=== PATIENT | male | born 1990 | race Caucasian/White ===

== ENCOUNTER 2017-05-18 09:23 | Emergency (ER) | payer OTHER ==
[2017-05-18 09:27] VITALS: BMI 28.5
--- NOTE | 2017-05-18 10:13 | PDOC ---
History of Present Illness - General Chief Complaint: Rectal Bleed Stated Complaint: RT FOOT PAIN Time Seen by Provider: 05/18/17 09:36 - History of Present Illness Initial Comments: 05/18/17 10:07 CHIEF COMPLAINT: rectal bleeding HISTORY OF PRESENT ILLNESS: 27 yo M with no PMH presents to ED with rectal bleeding x 3 months, worsening this week, with new onset abdominal pain this week. Patient states the pain is to his left side. He denies any vomiting but states he has had diarrhea for a week, mixed with "bright blood", but also has had "black stool, like black tarry stool" once a week for 2 months. He states today he feels constipated. He states that he started having rectal bleeding approximately a month ago, "but only when I wiped, but now it's getting worse, like the entire toilet is bloody, and now I keep having this abdominal pain.) Patient reports he has had pain to his third toe on his right foot but "I was told by my doctor just to straighten it and take Advil for the pain." He has been taking "like 12, maybe sometimes more" Advil a day for almost 3 months. He denies any shortness of breath, chest pain, palpitations, dizziness, lightheadedness, weakness. No recent travel or sick contacts. PAST MEDICAL HISTORY: Denies past medical history FAMILY HISTORY: Denies SOCIAL HISTORY: Occasional alcohol use, approximately 10 drinks 2-3x a month. Denies tobacco, illicit drug use. SURGICAL HISTORY: Denies ALLERGIES: honey bee venom REVIEW OF SYSTEMS General/Constitutional: Denies fever or chills. Denies weakness, weight change. HEENT: Denies change in vision. Denies ear pain or discharge. Denies sore throat. Cardiovascular: Denies chest pain or shortness of breath. Respiratory: Denies cough, wheezing, or hemoptysis. Gastrointestinal: Intermittent rectal bleeding x 3 months, worse this week. Denies nausea, vomiting, diarrhea or constipation. Genitourinary: Denies dysuria, frequency, or change in urination. Musculoskeletal: Denies joint or muscle swelling or pain. Denies neck or back pain. Skin and breasts: Denies rash or easy bruising. PHYSICAL EXAM General Appearance: Well-appearing, appropriately dressed. No apparent distress. HEENT: EOMI, PERRLA, normal ENT inspection, normal voice, TMs normal, pharynx normal. No conjunctival pallor. No photophobia, scleral icterus. Neck: Supple. Trachea midline. No tenderness, rigidity, carotid bruit, stridor , lymphadenopathy, or thyromegaly. Respiratory/Chest: Lungs CTAB. No shortness of breath, chest tenderness, respiratory distress, accessory muscle use. No crackles, rales, rhonchi, stridor , wheezing, dullness Cardiovascular: RRR. S1, S2. No JVD, murmur, bradycardia, tachycardia. Vascular Pulses: Dorsalis-Pedis (R): 2+, Dorsalis-Pedis (L): 2+ Gastrointestinal/Abdominal: TTP to LLQ. Normal bowel sounds. Abdomen soft, non- distended. No organomegaly, pulsatile mass, guarding, hernia, hepatomegaly, splenomegaly. Musculoskeletal/Extremities: Normal inspection. FROM of all extremities, normal capillary refill. Pelvis Stable. No CVA tenderness. No tenderness to extremities, pedal edema, swelling, erythema or deformity. Integumentary: Appropriate color, dry, warm. No cyanosis, erythema, jaundice or rash Neurologic: snow maker II-XII intact. Fully oriented, alert. Appropriate mood/affect. Motor strength 5/5. No appreciable EOM palsy, facial droop or sensory deficit. 05/18/17 10:21 Past History - Past Medical History Allergies/Adverse Reactions: Allergies Allergy/AdvReac Type Severity Reaction Status Date / Time venom-honey bee Allergy Severe Difficulty Verified 05/18/17 09:27 [bee venom (honey bee)] Breathing Home Medications: Ambulatory Orders No Home Medications 0 dose .ROUTE UTDICT 03/24/14 Pantoprazole Sodium [Protonix] 40 mg PO BID #60 tablet. 05/18/17 Other medical history: NONE - Immunization History Immunization Up to Date: Yes - Psycho/Social/Smoking Cessation Hx Anxiety: No Suicidal Ideation: No Smoking Status: No Smoking History: Never smoked Have you smoked in the past 12 months: No Number of Cigarettes Smoked Daily: 0 Hx Alcohol Use: Yes (SOCIAL) Drug/Substance Use Hx: No Substance Use Type: None *Physical Exam - Vital Signs Last Vital Signs Temp Pulse Resp BP Pulse Ox 99.1 F 120 H 20 124/85 100 05/18/17 09:24 05/18/17 09:24 05/18/17 09:24 05/18/17 09:24 05/18/17 09:24 ED Treatment Course - LABORATORY CBC & Chemistry Diagram: 05/18/17 15:15 05/18/17 09:30 Medical Decision Making - Medical Decision Making 05/18/17 10:13 27 yo M with no PMH presents to ED with rectal bleeding x 3 months, worsening this week, with new onset abdominal pain this week On arrival VS remarkable for HR 120. On exam HR 100. -EKG -CBC, CMP, T&S, PT/INR -Guaiac 05/18/17 12:48 Laboratory Tests 05/18/17 05/18/17 09:30 09:30 WBC 16.3 H Hgb 11.1 L Hct 34.4 L BUN 21 H Creatinine 1.4 H Guaiac negative. Will repeat CBC. Discussed case with MD Tadeo, will order abdomen and pelvis CTA to eval location of bleed. Awaiting CTA results. *DC/Admit/Observation/Transfer Diagnosis at time of Disposition: Gastritis - Discharge Dispostion Disposition: HOME Condition at time of disposition: Stable - Prescriptions Prescriptions: Pantoprazole Sodium [Protonix] 40 mg PO BID #60 tablet.dr - Referrals Referrals: Em Alexander MD [Primary Care Provider] - - Patient Instructions Printed Discharge Instructions: DI for Gastritis, DI for Rectal Bleeding Additional Instructions: Juan- The scan did not show any active bleeding- the next test you need is an endoscopy. Call Dr. Celeste's office to make an appointment tomorrow morning. Return to us if worse or any problems. Start the protonix tonight. 40 mg twice a day. I hope this gets resolved quickly. Best- Dr. Elvin Tadeo
[2017-05-18] MEDS ORDERED: PANTOPRAZOLE SODIUM 40 MG in SODIUM CHLORIDE 100 ML IVPB ONE (10:15)
[2017-05-18 10:32] LABS: MCH 27.4 pg (25.7-33.7); MCHC 32.1 g/dl (32.0-35.9); MEAN CELL VOLUME 85.3 fl (80-96); MEAN PLT VOLUME 7.7 fl (7.5-11.1); NEUTROPHILS 76.1 % (42.8-82.8); PLATELET COUNT 536 K/MM3 (134-434); RDW 17.2 % (11.9-15.9); WHITE BLOOD COUNT 16.3 K/mm3 (4.0-10.0)
[2017-05-18] MEDS ORDERED: PANTOPRAZOLE SODIUM 100 ML IVPB ONE (10:36)
[2017-05-18 10:44] LABS: INR 1.05 (0.82-1.09); PROTHROMBIN TIME (PATIENT) 11.6 SEC (9.98-11.88)
[2017-05-18 11:00] LABS: ALBUMIN 3.2 g/dl (3.4-5.0); ANION GAP 8 (8-16); BILIRUBIN,TOTAL 0.3 mg/dL (0.2-1.0); CALCIUM 8.6 mg/dL (8.5-10.1); CO2 28 mmol/L (21-32); CREATININE 1.4 mg/dL (0.7-1.3); GLUCOSE,RANDOM 102 mg/dL (74-106); SGOT/AST 36 U/L (15-37); SGPT/ALT 46 U/L (12-78); TOT PROT 7.6 g/dl (6.4-8.2)
[2017-05-18 11:01] LABS: ALK PHOS 59 U/L (45-117)
--- NOTE | 2017-05-18 14:58 | PDOC ---
History of Present Illness <Carmen Reyesgerald - Last Filed: 05/18/17 16:53> <Elvin Tadeo - Last Filed: 05/20/17 06:12> - General Chief Complaint: Rectal Bleed Stated Complaint: RT FOOT PAIN Time Seen by Provider: 05/18/17 09:36 Past History <Carmen Reyesgerald - Last Filed: 05/18/17 16:53> - Past Medical History Other medical history: NONE - Immunization History Immunization Up to Date: Yes - Psycho/Social/Smoking Cessation Hx Anxiety: No Suicidal Ideation: No Smoking Status: No Smoking History: Never smoked Have you smoked in the past 12 months: No Number of Cigarettes Smoked Daily: 0 Hx Alcohol Use: Yes (SOCIAL) Drug/Substance Use Hx: No Substance Use Type: None <Elvin Tadeo - Last Filed: 05/20/17 06:12> - Past Medical History Allergies/Adverse Reactions: Allergies Allergy/AdvReac Type Severity Reaction Status Date / Time venom-honey bee Allergy Severe Difficulty Verified 05/18/17 09:27 [bee venom (honey bee)] Breathing Home Medications: Ambulatory Orders No Home Medications 0 dose .ROUTE UTDICT 03/24/14 Pantoprazole Sodium [Protonix] 40 mg PO BID #60 tablet. 05/18/17 *Physical Exam - Vital Signs Last Vital Signs Temp Pulse Resp BP Pulse Ox 99.1 F 120 H 20 124/85 100 05/18/17 09:24 05/18/17 09:24 05/18/17 09:24 05/18/17 09:24 05/18/17 09:30 <ReyesCarmengerald - Last Filed: 05/18/17 16:53> - Vital Signs Last Vital Signs Temp Pulse Resp BP Pulse Ox 99.1 F 120 H 20 124/85 100 05/18/17 09:24 05/18/17 09:24 05/18/17 09:24 05/18/17 09:24 05/18/17 09:30 <Elvin Tadeo - Last Filed: 05/20/17 06:12> ED Treatment Course - LABORATORY CBC & Chemistry Diagram: 05/18/17 15:15 05/18/17 09:30 - ADDITIONAL ORDERS Additional order review: Laboratory Results 05/18/17 05/18/17 05/18/17 10:11 09:30 09:30 INR Sodium Potassium Chloride Carbon Dioxide Anion Gap BUN Creatinine Creat Clearance w eGFR Random Glucose Calcium Total Bilirubin AST ALT Alkaline Phosphatase Total Protein Albumin Stool Occult Blood Negative Blood Type O POSITIVE O POSITIVE Antibody Screen Positive H Antibody Identification TNP 05/18/17 05/18/17 09:30 09:30 INR 1.05 Sodium 135 L Potassium 4.5 Chloride 99 Carbon Dioxide 28 Anion Gap 8 BUN 21 H Creatinine 1.4 H Creat Clearance w eGFR > 60 Random Glucose 102 Calcium 8.6 Total Bilirubin 0.3 AST 36 ALT 46 Alkaline Phosphatase 59 Total Protein 7.6 Albumin 3.2 L Stool Occult Blood Blood Type Antibody Screen Antibody Identification 05/18/17 05/18/17 15:15 09:30 RBC 4.01 4.03 MCV 84.6 85.3 MCHC 31.2 L 32.1 RDW 16.6 H 17.2 H MPV 7.1 L 7.7 Neutrophils % 76.1 Lymphocytes % 5.9 L Monocytes % 15.0 H Eosinophils % 2.0 Basophils % 1.0 - RADIOLOGY Radiograph Interpretation: 05/18/17 16:53 EXAM: CT Abdomen and Pelvis INTERPRETED BY: Dr. Shen REVIEWED BY: Dr. Tadeo IMPRESSION: No CT evidence of active upper or lower GI bleeding. Significant thickening, edema and hyperemia of the descending and rectosigmoid colon suggestive of colitis, infectious or inflammatory. Other underlying etiologies cannot be completely excluded. - Medications Given in the ED: ED Medications Discontinued Medications Generic Name Dose Route Start Last Admin Trade Name Freq PRN Reason Stop Dose Admin Pantoprazole Sodium 40 mg/ 100 mls @ 200 mls/hr 05/18/17 10:15 05/18/17 10:37 Sodium Chloride IVPB 05/18/17 10:44 200 mls/hr ONCE ONE Administration <Aury Reyes - Last Filed: 05/18/17 16:53> - LABORATORY CBC & Chemistry Diagram: 05/18/17 15:15 05/18/17 09:30 - ADDITIONAL ORDERS Additional order review: Laboratory Results 05/18/17 05/18/17 05/18/17 10:11 09:30 09:30 INR Sodium Potassium Chloride Carbon Dioxide Anion Gap BUN Creatinine Creat Clearance w eGFR Random Glucose Calcium Total Bilirubin AST ALT Alkaline Phosphatase Total Protein Albumin Stool Occult Blood Negative Blood Type O POSITIVE O POSITIVE Antibody Screen Positive H Antibody Identification TNP 05/18/17 05/18/17 09:30 09:30 INR 1.05 Sodium 135 L Potassium 4.5 Chloride 99 Carbon Dioxide 28 Anion Gap 8 BUN 21 H Creatinine 1.4 H Creat Clearance w eGFR > 60 Random Glucose 102 Calcium 8.6 Total Bilirubin 0.3 AST 36 ALT 46 Alkaline Phosphatase 59 Total Protein 7.6 Albumin 3.2 L Stool Occult Blood Blood Type Antibody Screen Antibody Identification 05/18/17 09:30 RBC 4.03 MCV 85.3 MCHC 32.1 RDW 17.2 H MPV 7.7 Neutrophils % 76.1 Lymphocytes % 5.9 L Monocytes % 15.0 H Eosinophils % 2.0 Basophils % 1.0 - Medications Given in the ED: ED Medications Discontinued Medications Generic Name Dose Route Start Last Admin Trade Name Freq PRN Reason Stop Dose Admin Pantoprazole Sodium 40 mg/ 100 mls @ 200 mls/hr 05/18/17 10:15 05/18/17 10:37 Sodium Chloride IVPB 05/18/17 10:44 200 mls/hr ONCE ONE Administration <Elvin Tadeo - Last Filed: 05/20/17 06:12> Medical Decision Making - Medical Decision Making 05/18/17 16:00 No active bleeding seen on the scan..... H/H good. Unable to speak with Dr. Celeste, [facility] GI. Will DC home on Protonix 05/18/17 16:34 <Elvin Tadeo - Last Filed: 05/20/17 06:12> *DC/Admit/Observation/Transfer - Attestations Scribe Attestion: 05/18/17 16:55 Documentation prepared by Aury Reyes, acting as medical biller/coder for Elvin Tadeo DO. <Aury Reeys - Last Filed: 05/18/17 16:53> - Attestations Physician Attestion: 05/18/17 14:58 I, Dr. Elvin Tadeo, attest that this document has been prepared under my direction and personally reviewed by me in its entirety. I further attest, that it accurately reflects all work, treatment, procedures and medical decision -making performed by me. <Elvin Tadeo - Last Filed: 05/20/17 06:12> Diagnosis at time of Disposition: Gastritis - Discharge Dispostion Disposition: HOME Condition at time of disposition: Stable - Prescriptions Prescriptions: Pantoprazole Sodium [Protonix] 40 mg PO BID #60 tablet.dr - Referrals Referrals: Em Alexander MD [Primary Care Provider] - - Patient Instructions Printed Discharge Instructions: DI for Rectal Bleeding, DI for Gastritis Additional Instructions: Juan- The scan did not show any active bleeding- the next test you need is an endoscopy. Call Dr. Celeste's office to make an appointment tomorrow morning. Return to us if worse or any problems. Start the protonix tonight. 40 mg twice a day. I hope this gets resolved quickly. Best- Dr. Elvin Tadeo
--- NOTE | 2017-05-18 15:14 | EKG ---
Test Reason : Blood Pressure : / mmHG Vent. Rate : 100 BPM Atrial Rate : 100 BPM P-R Int : 130 ms QRS Dur : 092 ms QT Int : 300 ms P-R-T Axes : 054 089 -04 degrees QTc Int : 387 ms NORMAL SINUS RHYTHM CANNOT RULE OUT INFERIOR INFARCT , AGE UNDETERMINED ABNORMAL ECG NO PREVIOUS ECGS AVAILABLE Confirmed by NYA DOW MD ([id number]) on 05/18/2017 3:14:34 PM Referred By: Confirmed By:NYA DOW MD
[2017-05-18 15:23] LABS: MCH 26.4 pg (25.7-33.7); MCHC 31.2 g/dl (32.0-35.9); MEAN CELL VOLUME 84.6 fl (80-96); MEAN PLT VOLUME 7.1 fl (7.5-11.1); PLATELET COUNT 506 K/MM3 (134-434); RDW 16.6 % (11.9-15.9); WHITE BLOOD COUNT 16.2 K/mm3 (4.0-10.0)
[2017-05-18 17:08] VITALS: BP 156/86; PULSE 92; TEMP 97.9
== END 2017-05-18 17:11 | disposition home or self-care (01) ==
LOC: JER 09:23
PROC: 3E033GC Introduction of Other Therapeutic Substance into Peripheral Vein, Percutaneous Approach (ICD-10-PCS; principal; 2017-05-18)
DX: K29.70 Gastritis, unspecified, without bleeding (principal); Z91.038 Other insect allergy status
CPT/HCPCS: 36415; 74174-TC; 80053; 82272; 85025; 85027; 85610; 86850; 86870; 86900; 86901; 86902; 93005; 93010; 96365; 99284-25

== ENCOUNTER 2017-06-22 14:48 | Emergency (ER) | payer OTHER ==
[2017-06-22 15:09] VITALS: BP 136/70; PULSE 94; TEMP 98; BMI 29.8
--- NOTE | 2017-06-22 15:43 | PDOC ---
History of Present Illness - General Chief Complaint: Pain Stated Complaint: FOOT PAIN Time Seen by Provider: 06/22/17 15:26 History Source: Patient Exam Limitations: No Limitations - History of Present Illness Initial Comments: 06/22/17 15:57 CHIEF COMPLAINT: Pain to right fourth toe HISTORY OF PRESENT ILLNESS: 27 y/o male, with history of colitis unable to take NSAIDs presents for evaluation and guidance for pain to right fourth toe for one year. Patient has been seen by multiple doctors. MRI was recently performed which was suggestive of osteomyelitis. Was no erythema edema, no streaking to area. Patient was unable to obtain an orthopedic evaluation until 2 weeks. Denies fever, able to ambulate without difficulty, denies injury, no trauma. 06/22/17 16:09 Occurred: reports: other (1 year) Severity: Yes: moderate Lower Extremity Pain Location: right: 4th toe (swelling, no erthema, soft protruding area to the medial toe. ) Method of Injury: Yes: unknown Modifying Factors: improves with: None Lower Ext. Injury Location - Specific Injury Location Foot: right foot pain (right fourth toe) Past History - Past Medical History Allergies/Adverse Reactions: Allergies Allergy/AdvReac Type Severity Reaction Status Date / Time venom-honey bee Allergy Severe Difficulty Verified 06/22/17 15:06 [bee venom (honey bee)] Breathing Home Medications: Ambulatory Orders Pantoprazole Sodium [Protonix] 40 mg PO BID #60 tablet. 05/18/17 Oxycodone HCl/Acetaminophen [Percocet 5-325 mg Tablet] 1 - 2 tab PO Q4H #12 tablet MDD 12 06/22/17 Prednisone [Deltasone -] 10 mg PO DAILY 06/22/17 GI Disorders: Yes (COLITIS) - Immunization History Immunization Up to Date: Yes - Psycho/Social/Smoking Cessation Hx Anxiety: No Suicidal Ideation: No Smoking Status: No Smoking History: Never smoked Have you smoked in the past 12 months: No Number of Cigarettes Smoked Daily: 0 Information on smoking cessation initiated: No Hx Alcohol Use: Yes (SOCIAL) Drug/Substance Use Hx: No Substance Use Type: None Review of Systems - Review of Systems Musculoskeletal: Yes: Joint Pain, Joint Swelling. No: Muscle Pain, Muscle Weakness, Joint Stiffness Integumentary: No: Bruising, Erythema Neurological: No: Symptoms reported, Paresthesia, Tingling, Tremors Hematologic/Lymphatic: No: Symptoms Reported All Other Systems: Reviewed and Negative *Physical Exam - Vital Signs Last Vital Signs Temp Pulse Resp BP Pulse Ox 98 F 94 H 18 136/70 98 06/22/17 15:03 06/22/17 15:03 06/22/17 15:03 06/22/17 15:03 06/22/17 15:03 - Physical Exam General Appearance: Yes: Appropriately Dressed. No: Apparent Distress Respiratory/Chest: positive: Lungs Clear, Normal Breath Sounds Cardiovascular: positive: Regular Rhythm, Regular Rate Integumentary: positive: Swelling. negative: Erythema, Ecchymosis, Bruising ( right forth toe.) Neurologic: positive: Alert, Normal Mood/Affect Medical Decision Making - Medical Decision Making 06/22/17 15:50 A/P: Patient here for evaluation of chronic pain to right fourth toe. Patient reports being seen by multiple physicians MRI was performed which showed marked edema of the fourth toe with edema of the bone marrow of the distal and middle phalanx probably related cellulitis and osteomyelitis. There is no soft tissue abscess, patient was referred to orthopedics who did not have an appointment until next week. Appointment obtained from Dr. Grijalva at 3 PM tomorrow. Patient to bring copy of MRI, and follow-up pain medication ordered. I have decided not to start patient on antibiotics at this time because there is no erythema edema or streaking, symptoms have been occurring for one year. Only pain to toe. Patient will be seen at 3 PM tomorrow. *DC/Admit/Observation/Transfer Diagnosis at time of Disposition: Toe pain Qualifiers: Laterality: right Qualified Code(s): M79.674 - Pain in right toe(s) - Discharge Dispostion Disposition: HOME Condition at time of disposition: Good Admit: No - Prescriptions Prescriptions: Oxycodone HCl/Acetaminophen [Percocet 5-325 mg Tablet] 1 - 2 tab PO Q4H #12 tablet MDD 12 - Referrals Referrals: Hi Grijalva MD [Staff Physician] - - Patient Instructions Additional Instructions: Please follow up in the office of Dr. Grijalva tomorrow at 3 pm, 5 th floor of hospital.
== END 2017-06-22 15:53 | disposition home or self-care (01) ==
LOC: JERFT 14:48
DX: M79.674 Pain in right toe(s) (principal)
CPT/HCPCS: 99281-25

== ENCOUNTER 2017-06-30 21:54 | Emergency (ER) | payer OTHER ==
[2017-06-30 22:07] VITALS: BP 163/93; PULSE 95; TEMP 98.4; BMI 29.1
--- NOTE | 2017-06-30 22:45 | PDOC ---
History of Present Illness <Deshawn Wayne - Last Filed: 06/30/17 22:59> - General History Source: Patient Exam Limitations: No Limitations - History of Present Illness Initial Comments: 06/30/17 23:20 The patient is a 27 year old male, with significant past medical history of osteomyelitis of the right 4th toe, and ulcerative colitis, who presents today with right 4th toe swelling and pain that is exacerbated when walking and preventing him from sleeping at night. The patient is ambulatory but limping. He reports that he visited the ED on 06/22/17 and was given oxycodone for the pain , but has since run out. He notes that Tylenol provides no relief and he unable to take advil or motrin because of the colitis. The patient has experienced this pain intermittently over the past year; however , the pain worsened this summer. His PCP, Dr. Em Alexander, ordered a MRI in May which showed osteomyelitis. After two other ED visits, he finally got an appointment with computer instructor Dr. Grijalva on 06/23/17, who then referred him to Infectious Disease, Dr. Pal. He has an appointment to follow up with Dr. Pal in the office 1 week from today to receive his blood test results and discuss a treatment plan. Denies numbness, tingling of the lower extremity. Denies any recent trauma and injury to the right foot and toe. Denies fever, chills, nausea, vomiting. Allergies: NKDA Social Hx: No tobacco use. No alcohol use. No recreational drug use. PCP: Dr. Em Alexander Podiatry: Dr. Grijalva Infectious Disease: Dr. Wesley Pal Dipper Operator: Dr. Celeste <Taylor Almonte - Last Filed: 06/30/17 23:22> - General Chief Complaint: Pain Stated Complaint: PAIN (FOOT) Time Seen by Provider: 06/30/17 22:30 Past History - Past Medical History GI Disorders: Yes (COLITIS) - Immunization History Immunization Up to Date: Yes - Psycho/Social/Smoking Cessation Hx Anxiety: No Suicidal Ideation: No Smoking Status: No Smoking History: Never smoked Have you smoked in the past 12 months: No Number of Cigarettes Smoked Daily: 0 Information on smoking cessation initiated: No Hx Alcohol Use: No Drug/Substance Use Hx: No Substance Use Type: None <Deshawn Wayne - Last Filed: 06/30/17 22:59> <Taylor Almonte - Last Filed: 06/30/17 23:22> - Past Medical History Allergies/Adverse Reactions: Allergies Allergy/AdvReac Type Severity Reaction Status Date / Time venom-honey bee Allergy Severe Difficulty Verified 06/30/17 22:07 [bee venom (honey bee)] Breathing Home Medications: Ambulatory Orders Pantoprazole Sodium [Protonix] 40 mg PO BID #60 tablet. 05/18/17 Prednisone [Deltasone -] 10 mg PO DAILY 06/22/17 Tramadol HCl [Ultram] 50 mg PO QID PRN #20 tablet MDD 4 06/30/17 Review of Systems - Review of Systems Constitutional: No: Chills, Fever Respiratory: No: Shortness of Breath Cardiac (ROS): No: Palpitations Musculoskeletal: Yes: Joint Pain, Muscle Pain Integumentary: No: Rash Neurological: No: Weakness All Other Systems: Reviewed and Negative <Deshawn Wayne - Last Filed: 06/30/17 22:59> - Review of Systems Able to Perform ROS?: Yes <Taylor Almonte - Last Filed: 06/30/17 23:22> *Physical Exam - Vital Signs Last Vital Signs Temp Pulse Resp BP Pulse Ox 98.4 F 95 H 21 163/93 100 06/30/17 22:05 06/30/17 22:05 06/30/17 22:05 06/30/17 22:05 06/30/17 22:05 <Deshawn Wayne - Last Filed: 06/30/17 22:59> - Vital Signs Last Vital Signs Temp Pulse Resp BP Pulse Ox 98.4 F 95 H 21 163/93 100 06/30/17 22:05 06/30/17 22:05 06/30/17 22:05 06/30/17 22:05 06/30/17 22:05 - Physical Exam Comments: 06/30/17 23:21 GENERAL: The patient is awake, alert, and fully oriented, in no acute distress. HEAD: Normal with no signs of trauma. EYES: Pupils equal, round and reactive to light, extraocular movements intact, sclera anicteric, conjunctiva clear. RIGHT LOWER EXTREMITY: +soft tissue swelling to right 4th toe with some discomfort to palpation. No warmth. No erythema. No tenderness to the metatarsals. Neurovascularly intact. NEUROLOGICAL: Normal speech. PSYCH: Normal mood, normal affect. SKIN: Warm, Dry, normal turgor, no rashes or lesions noted. <Taylor Almonte - Last Filed: 06/30/17 23:22> ED Treatment Course - Medications Given in the ED: ED Medications Discontinued Medications Generic Name Dose Route Start Last Admin Trade Name Fadia PRN Reason Stop Dose Admin Tramadol HCl 50 mg 06/30/17 23:09 06/30/17 23:12 Ultram - PO 06/30/17 23:10 50 mg ONCE ONE Administration <NolaTaylor perdue - Last Filed: 06/30/17 23:22> Medical Decision Making - Medical Decision Making 06/30/17 23:00 A portion of this note was documented by scribe services under my direction. I have reviewed the details of the note, within reason, and agree with the documentation with the following case summary and management plan written by me. 27y/o healthy M with recently diagnosed UC on first course of steroids/abx as per Dr. Celeste, also with recent workup for acute (over past 2 months) on chronic (intermittent over 1.5 years) R 4th toe pain: MRI in May with positive osteomyelitis, seen here 06/22 with xray also c/w osteo, referred to Dr. Grijalva, then referred to Dr. Becker, and saw Dr. Pal of ID today. Has another appt with Dr. pal next week to determine antibiotics, but presents to ED again today asking solely for pain meds because he ran out of previously prescribed percocet. no f/c, no new sxs or complaints. strictly needs pain meds. no indication for further workup/imaging. Pt is under the care of all appropriate specialists and there is a plan to address initiation of abx. will give course of tramadol (bedside discussion about addiction, etc) will f/u with the specialists as scheduled understands return criteria. <Deshawn Wayne - Last Filed: 06/30/17 22:59> *DC/Admit/Observation/Transfer <Deshawn Wayne - Last Filed: 06/30/17 22:59> - Attestations Scribe Attestion: 06/30/17 23:21 Documentation prepared by KENDRA Mann, acting as medical care manager for Deshawn Wayne MD. <Taylor Almonte - Last Filed: 06/30/17 23:22> Diagnosis at time of Disposition: Toe pain Qualifiers: Laterality: right Qualified Code(s): M79.674 - Pain in right toe(s) - Prescriptions Prescriptions: Tramadol HCl [Ultram] 50 mg PO QID PRN #20 tablet MDD 4 PRN Reason: Pain - Referrals Referrals: Em Alexander MD [Primary Care Provider] - Wesley Pal MD [Staff Physician] - Yo Becker MD [Staff Physician] - - Patient Instructions Printed Discharge Instructions: DI for Osteomyelitis Additional Instructions: Activity as tolerated. Stay hydrated. Tylenol 1000 mg every 8 hours as needed for mild pain, tramadol as prescribed as needed for severe pain. Tramadol can make you lightheaded so take proper precautions. Continue your medications as previously prescribed by your physician. You should follow up with your specialists (Dr. Pal, Dr. Becker, and Dr. Alexander) as soon as possible regarding today's emergency department visit. Return to the emergency department for any new or concerning symptoms, particularly fever/chills, redness, increased swelling, intolerable pain.
[2017-06-30] MEDS ORDERED: traMADol HCL 50 MG TABLET PO ONE (23:09)
[2017-06-30] MEDS ORDERED: traMADol HCL 50 MG TABLET ONE (23:11)
== END 2017-06-30 23:26 | disposition home or self-care (01) ==
LOC: JER 21:54 → SUPCPDRO 21:54 → JER 23:26
DX: M79.674 Pain in right toe(s) (principal); M86.9 Osteomyelitis, unspecified; K51.90 Ulcerative colitis, unspecified, without complications
CPT/HCPCS: 99282-25

== ENCOUNTER 2017-07-27 03:33 | Emergency (ER) | payer OTHER ==
--- NOTE | 2017-07-27 03:49 | PDOC ---
History of Present Illness - General History Source: Patient <Tian Siu - Last Filed: 07/27/17 03:53> - General History Source: Patient Exam Limitations: No Limitations - History of Present Illness Initial Comments: 07/27/17 03:56 27 yr old male, with significant past medical history of ulcerative colitis and chronic pain to the right 4th toe, who presents to the emergency room complaining of right 4th toe pain. The patient explains that he has been worked up by multiple doctors for this pain and it is suspected to be osteomyelitis. He states that the tramadol is not relieving the pain, and he cannot take motrin secondary to the ulcerative colitis. The pain is very bothersome and preventing him from sleeping at night. No recent trauma, injury. No fever, chills, nausea, vomiting. Allergies: venom-honey bee PCP: Dr. Em Alexander <Taylor Almonte - Last Filed: 07/27/17 03:57> - General Stated Complaint: INFECTION IN FOOT Time Seen by Provider: 07/27/17 03:46 Past History - Past Medical History GI Disorders: Yes (COLITIS) - Immunization History Immunization Up to Date: Yes - Suicide/Smoking/Psychosocial Hx Smoking Status: No Smoking History: Never smoked Have you smoked in the past 12 months: No Number of Cigarettes Smoked Daily: 0 Hx Alcohol Use: No Drug/Substance Use Hx: No Substance Use Type: None <Tian Siu - Last Filed: 07/27/17 03:53> <Taylor Almonte - Last Filed: 07/27/17 03:57> - Past Medical History Allergies/Adverse Reactions: Allergies Allergy/AdvReac Type Severity Reaction Status Date / Time venom-honey bee Allergy Severe Difficulty Verified 07/27/17 03:49 [bee venom (honey bee)] Breathing Home Medications: Ambulatory Orders Pantoprazole Sodium [Protonix] 40 mg PO BID #60 tablet. 05/18/17 Prednisone [Deltasone -] 10 mg PO DAILY 06/22/17 Tramadol HCl [Ultram] 50 mg PO QID PRN #20 tablet MDD 4 06/30/17 Oxycodone HCl/Acetaminophen [Percocet 5-325 mg Tablet] 1 - 2 tab PO Q6H #20 tablet MDD 4 07/27/17 Review of Systems - Review of Systems Able to Perform ROS?: Yes Comments:: 07/27/17 03:57 CONSTITUTIONAL: Absent: fever, no chills, no fatigue EYES: Absent: visual changes ENT: Absent: ear pain, no sore throat CARDIOVASCULAR: Absent: chest pain, no palpitations RESPIRATORY: Absent: cough, no SOB GI: Absent: abdominal pain, no nausea, no vomiting, no constipation, no diarrhea GENITOURINARY: Absent: dysuria, no frequency, no hematuria MUSCULOSKELETAL: Present: right 4th toe pain Absent: back pain. SKIN: Absent: rash <Taylor Almonte - Last Filed: 07/27/17 03:57> *Physical Exam - Vital Signs Last Vital Signs Temp Pulse Resp BP Pulse Ox 98.7 F 75 14 124/73 100 07/27/17 03:49 07/27/17 03:49 07/27/17 03:49 07/27/17 03:49 07/27/17 03:49 - Physical Exam Comments: 07/27/17 03:57 GENERAL: Well-appearing, well-nourished. No apparent distress. HEENT: Normocephalic, atraumatic. PERRL, EOM intact. CARDIOVASCULAR: Normal S1, S2. Regular rate and rhythm. PULMONARY: Clear to auscultation bilaterally. ABDOMEN: Soft, non-distended, non-tender. EXTREMITIES: Tenderness to palpation to the distal phalanx of the 4th toe of the right foot. Non-erythematous. No streaking. No bony deformity. Normal ROM in all four extremities. No gross deformities. SKIN: Warm, dry. No rash NEUROLOGICAL: No focal neurological deficits. <Taylor Almonte - Last Filed: 07/27/17 03:57> Medical Decision Making - Medical Decision Making 07/27/17 03:52 Dr. Siu: The scribe's documentation has been prepared under my direction and personally reviewed by me in its entirery. I confirm that the note above accurately reflects all work, treatment, procedures, and medical decision making performed by me. <Tian Siu - Last Filed: 07/27/17 03:53> *DC/Admit/Observation/Transfer - Discharge Dispostion Admit: No <Tian Siu - Last Filed: 07/27/17 03:53> - Attestations Scribe Attestion: 07/27/17 03:57 Documentation prepared by KENDRA Mann, acting as medical intern for Tian Siu MD. <Taylor Almonte - Last Filed: 07/27/17 03:57> Diagnosis at time of Disposition: Toe pain - Discharge Dispostion Disposition: HOME Condition at time of disposition: Stable - Prescriptions Prescriptions: Oxycodone HCl/Acetaminophen [Percocet 5-325 mg Tablet] 1 - 2 tab PO Q6H #20 tablet MDD 4 - Referrals Referrals: Em Alexander MD [Primary Care Provider] - - Patient Instructions Printed Discharge Instructions: DI for Turf Toe Additional Instructions: Please follow up with your regular scheduled appointments. Avoid alcohol or driving when taking pain medication.
[2017-07-27 03:51] VITALS: BP 124/73; PULSE 75; TEMP 98.7; BMI 28.3
== END 2017-07-27 03:58 | disposition home or self-care (01) ==
LOC: JER 03:33
DX: M79.674 Pain in right toe(s) (principal); K52.9 Noninfective gastroenteritis and colitis, unspecified; G89.29 Other chronic pain
CPT/HCPCS: 99281-25

== ENCOUNTER 2017-11-17 11:05 | Observation (INO) | payer OTHER ==
--- NOTE | 2017-11-17 12:12 | PDOC ---
History of Present Illness - General History Source: Patient Exam Limitations: No Limitations - History of Present Illness Initial Comments: 11/17/17 12:16 The patient is a 27 year old male, with a significant past medical history of ulcerative colitis and anemia who presents to the emergency department with low H&H, SOB, headaches, light headedness for about 2 weeks. The patient also reports having complaints of palpitations. The patient reports having a previous episode with similar symptoms where he needed a blood transfusion. He notes his symptoms have been getting worse and he has been getting much more pale. He notes when transfering from a sitting position to a standing position his lightheadedness is often made worse. He denies bloody or dark/tarry stools. He denies any recent fevers, chills, illness. He denies any recent nausea, vomit , diarrhea or constipation. He denies any recent chest pain. He denies any recent dysuria, frequency, urgency or hematuria. Allergies: NKA Past surgical history: None reported. Social History: Nonsmoker. Occasional EtOH use and denies recreational drug use. Primary Care Physician: Dr.Sofia Alexander Family history: Denies cardiac history <Jesse Gomes - Last Filed: 11/17/17 14:33> <Sandra Carreno - Last Filed: 11/17/17 16:51> - General Chief Complaint: Lightheaded Stated Complaint: LOW H&H SOB, DIZZINESS Time Seen by Provider: 11/17/17 11:43 Past History <Jesse Gomes - Last Filed: 11/17/17 14:33> - Past Medical History Anemia: Yes COPD: No GI Disorders: Yes (COLITIS) - Immunization History Immunization Up to Date: Yes - Suicide/Smoking/Psychosocial Hx Smoking Status: No Smoking History: Never smoked Have you smoked in the past 12 months: No Number of Cigarettes Smoked Daily: 0 Information on smoking cessation initiated: No Hx Alcohol Use: No Drug/Substance Use Hx: No Substance Use Type: None <Sandra Carreno - Last Filed: 11/17/17 16:51> - Past Medical History Allergies/Adverse Reactions: Allergies Allergy/AdvReac Type Severity Reaction Status Date / Time venom-honey bee Allergy Severe Difficulty Verified 11/17/17 11:15 [bee venom (honey bee)] Breathing Home Medications: Ambulatory Orders Mesalamine Suppository [Canasa Suppository -] 10,000 mg [place] PRN PRN 11/17/17 Review of Systems - Review of Systems Able to Perform ROS?: Yes Comments:: 11/17/17 12:16 GENERAL/CONSTITUTIONAL: No fever or chills. No weakness. HEAD, EYES, EARS, NOSE AND THROAT: No change in vision. No ear pain or discharge. No sore throat. GASTROINTESTINAL: No nausea, vomiting, diarrhea or constipation. GENITOURINARY: No dysuria, frequency, or change in urination. CARDIOVASCULAR: (+) Shortness of breath. No chest pain. RESPIRATORY: No cough, wheezing, or hemoptysis. MUSCULOSKELETAL: No joint or muscle swelling or pain. No neck or back pain. SKIN: No rash NEUROLOGIC: (+) Lightheadedness. (+) Headache No loss of consciousness, or change in strength/sensation. ENDOCRINE: No increased thirst. No abnormal weight change. HEMATOLOGIC/LYMPHATIC: No anemia, easy bleeding, or history of blood clots. ALLERGIC/IMMUNOLOGIC: No hives or skin allergy. <Jesse Gomes - Last Filed: 11/17/17 14:33> *Physical Exam - Vital Signs Last Vital Signs Temp Pulse Resp BP Pulse Ox 98.3 F 77 18 137/83 100 11/17/17 11:17 11/17/17 11:17 11/17/17 11:17 11/17/17 11:17 11/17/17 11:17 - Physical Exam Comments: 11/17/17 12:16 GENERAL: (+) Pale in appearance. Awake, alert, and fully oriented, in no acute distress HEAD: No signs of trauma EYES: (+) Pale conjuctiva. PERRLA, EOMI, sclera anicteric. ENT: Auricles normal inspection, hearing grossly normal, nares patent, oropharynx clear without exudates. Moist mucosa NECK: Normal ROM, supple, no lymphadenopathy, JVD, or masses LUNGS: Breath sounds equal, clear to auscultation bilaterally. No wheezes, and no crackles HEART: Regular rate and rhythm, normal S1 and S2, no murmurs, rubs or gallops ABDOMEN: Soft, nontender, normoactive bowel sounds. No guarding, no rebound. No masses EXTREMITIES: Normal range of motion, no edema. No clubbing or cyanosis. No cords, erythema, or tenderness BACK: No midline spinal tenderness in cervical/thoracic/lumbar region NEUROLOGICAL: Normal speech, cranial nerves intact, negative pronator drift, 5/ 5 strength in all 4 extremities, normal sensation to light touch in all 4 extremities, normal cerebellar exam, normal gait, normal reflexes and tone SKIN: Warm, Dry, normal turgor, no rashes or lesions noted. <Jesse Gomse - Last Filed: 11/17/17 14:33> - Vital Signs Last Vital Signs Temp Pulse Resp BP Pulse Ox 98.3 F 77 18 137/83 100 11/17/17 11:17 11/17/17 11:17 11/17/17 11:17 11/17/17 11:17 11/17/17 11:17 <Sandra Carreno - Last Filed: 11/17/17 16:51> ED Treatment Course - LABORATORY CBC & Chemistry Diagram: 11/17/17 12:40 11/17/17 12:40 - Consult/PCP Time Called: 12:10 (Called Dr. Alexander at 12:10 & 13:00, who was not available to speak. ) Case discussed with personal care physician: Em Alexander <Jesse Gomes - Last Filed: 11/17/17 14:33> - LABORATORY CBC & Chemistry Diagram: 11/17/17 12:40 11/17/17 12:40 - RADIOLOGY Radiology Studies Ordered: Category Date Time Status CHEST PA & LAT [RAD] Stat Radiology 11/17/17 12:04 Ordered <Sandra Carreno - Last Filed: 11/17/17 16:51> Medical Decision Making - Medical Decision Making 11/17/17 14:33 Spoke with [employer] Asha Grimm who accepted admission. <Jesse Gomes - Last Filed: 11/17/17 14:33> - Medical Decision Making 11/17/17 12:06 27-year-old male history of iron deficiency anemia and ulcerative colitis presents with shortness of breath and lightheadedness and hemoglobin 2 days ago of 7.5. Vitals unremarkable. Exam remarkable for pale appearance, guaiac exam is pending. We'll repeat labs today and admit for symptomatic anemia. We'll call the patient's primary physician Dr. Alexander in the meantime. 11/17/17 14:45 Labs remarkable for hemoglobin of 7.7. One unit of packed red blood cells has been ordered. Stool guaiac is negative. Case discussed with nurse practitioner Asha, patient accepted for admission to Dr. Howell. Case discussed in detail with admitting physician including history, physical exam and ancillary studies. Admitting physician has assumed care for the patient, will follow all pending diagnostics and will complete the evaluation and treatment. <Sandra Carreno - Last Filed: 11/17/17 16:51> *DC/Admit/Observation/Transfer - Attestations Scribe Attestion: 11/17/17 12:16 Documentation prepared by Jesse Gomes, acting as hospitalist medical director for Sandra Carreno MD. <Jesse Gomes - Last Filed: 11/17/17 14:33> - Discharge Dispostion Admit: Yes - Attestations Physician Attestion: 11/17/17 14:46 I, Dr. Sandra Carreno MD, attest that this document has been prepared under my direction and personally reviewed by me in its entirety. I further attest, that it accurately reflects all work, treatment, procedures and medical decision -making performed by me. <Sandra Carreno - Last Filed: 11/17/17 16:51> Diagnosis at time of Disposition: Anemia requiring transfusions
[2017-11-17 13:25] LABS: INR 1.05 (0.82-1.09); PROTHROMBIN TIME (PATIENT) 11.9 SEC (9.98-11.88)
[2017-11-17 13:28] LABS: ACTIVATED PTT 31.9 SECONDS (26.9-34.4)
[2017-11-17 13:29] LABS: BASO % 3.6 % (0-2.0); EOS % 6.1 % (0-4.5); HEMATOCRIT 25.9 % (35.4-49); HEMOGLOBIN 7.7 GM/dL (11.7-16.9); LYMPH % 19.7 % (8-40); MCHC 29.6 g/dl (32.0-35.9); MEAN CELL VOLUME 80.9 fl (80-96); MEAN PLT VOLUME 7.4 fl (7.5-11.1); MONO % 9.8 % (3.8-10.2); NEUT % 60.8 % (42.8-82.8); PLATELET COUNT 384 K/MM3 (134-434); RBC 3.21 M/mm3 (4.00-5.60); RDW 18.2 % (11.9-15.9); WHITE BLOOD COUNT 4.4 K/mm3 (4.0-10.0)
[2017-11-17 13:37] LABS: ALBUMIN 4.1 g/dl (3.4-5.0); ANION GAP 6 (8-16); BILIRUBIN,TOTAL 0.3 mg/dL (0.2-1.0); BLOOD UREA NITROGEN 12 mg/dL (7-18); CALCIUM 8.4 mg/dL (8.5-10.1); CHLORIDE 107 mmol/L (98-107); CO2 26 mmol/L (21-32); GLUCOSE,RANDOM 81 mg/dL (74-106); SGOT/AST 19 U/L (15-37); SGPT/ALT 22 U/L (12-78); SODIUM 139 mmol/L (136-145); TOT PROT 7.5 g/dl (6.4-8.2)
[2017-11-17 13:38] LABS: ALK PHOS 41 U/L (45-117)
--- NOTE | 2017-11-17 15:05 | HP ---
Admitting History and Physical - Admission Chief Complaint: dizziness and light headness History Source: Patient - Past Medical History Heme/Onc: Yes: Anemia - Smoking History Smoking history: Never smoked Have you smoked in the past 12 months: No Aproximately how many cigarettes per day: 0 - Alcohol/Substance Use Hx Alcohol Use: No Home Medications - Allergies Allergies/Adverse Reactions: Allergies Allergy/AdvReac Type Severity Reaction Status Date / Time venom-honey bee Allergy Severe Difficulty Verified 11/17/17 11:15 [bee venom (honey bee)] Breathing - Home Medications Home Medications: Ambulatory Orders Mesalamine Suppository [Canasa Suppository -] 10,000 mg [place] PRN PRN 11/17/17 Review of Systems - Review of Systems Constitutional: reports: Other (lightheaded) Neurological: reports: Dizziness Physical Examination Vital Signs: Vital Signs Temperature 98.3 F 11/17/17 11:17 Pulse Rate 77 11/17/17 11:17 Respiratory Rate 18 11/17/17 11:17 Blood Pressure 137/83 11/17/17 11:17 O2 Sat by Pulse Oximetry (%) 100 11/17/17 11:17 Constitutional: Yes: Calm, Pallor Cardiovascular: Yes: Regular Rate and Rhythm, S1, S2 Respiratory: Yes: CTA Bilaterally Gastrointestinal: Yes: Normal Bowel Sounds, Soft Edema: No Neurological: Yes: Alert, Oriented Labs: CBC, BMP 11/17/17 12:40 11/17/17 12:40 Imaging - Results Chest X-ray: Report Reviewed Problem List - Problems (1) Anemia requiring transfusions Assessment/Plan: heme prbc gi iron panel early ambulation observation admisson stool occult negative ppi Code(s): D64.9 - ANEMIA, UNSPECIFIED
--- NOTE | 2017-11-17 16:24 | CONSULT ---
Consult Consult Specialty:: Hematology - History of Present Illness History of Present Illness: Patient seen and examined consulted for anemia, has Iron def as per him Last PRBC in June. Very few flares of UC. follows with GI . Denies bleeding now. - History Source History Provided By: Patient, Family Member - Past Medical History Gastrointestinal: Yes: Ulcerative Colitis - Alcohol/Substance Use Hx Alcohol Use: No - Smoking History Smoking history: Never smoked Have you smoked in the past 12 months: No Aproximately how many cigarettes per day: 0 Home Medications - Allergies Allergies/Adverse Reactions: Allergies Allergy/AdvReac Type Severity Reaction Status Date / Time venom-honey bee Allergy Severe Difficulty Verified 11/17/17 11:15 [bee venom (honey bee)] Breathing - Home Medications Home Medications: Ambulatory Orders Mesalamine Suppository [Canasa Suppository -] 10,000 mg [place] PRN PRN 11/17/17 Review of Systems - Review of Systems Constitutional: denies: Fever, Lethargy, Loss of Appetite Eyes: denies: Blurred Vision, Double Vision, Eye Pain, Photophobia HENT: denies: Difficult Swallowing Cardiovascular: denies: Chest Pain, Edema, Palpitations, Shortness of Breath Gastrointestinal: denies: Abdominal Pain, Bloating, Constipation, Diarrhea, Rectal Bleeding, Vomiting Musculoskeletal: reports: No Symptoms Neurological: reports: No Symptoms Hematology/Lymphatic: reports: No Symptoms Physical Exam Vital Signs: Vital Signs Temperature 98.3 F 11/17/17 11:17 Pulse Rate 77 11/17/17 11:17 Respiratory Rate 18 11/17/17 11:17 Blood Pressure 137/83 11/17/17 11:17 O2 Sat by Pulse Oximetry (%) 100 11/17/17 11:17 Constitutional: Yes: Well Nourished, No Distress, Calm Eyes: Yes: Conjunctiva Clear, Other HENT: Yes: Atraumatic, Normocephalic Neck: Yes: Supple, Trachea Midline Cardiovascular: Yes: Regular Rate and Rhythm Respiratory: Yes: Regular, CTA Bilaterally Gastrointestinal: Yes: Normal Bowel Sounds, Soft Extremities: Yes: WNL Edema: No Labs: CBC, BMP 11/17/17 12:40 11/17/17 12:40 Problem List - Problems (1) Anemia requiring transfusions Code(s): D64.9 - ANEMIA, UNSPECIFIED (2) Gastritis Code(s): K29.70 - GASTRITIS, UNSPECIFIED, WITHOUT BLEEDING (3) Ulcerative colitis Code(s): K51.90 - ULCERATIVE COLITIS, UNSPECIFIED, WITHOUT COMPLICATIONS Assessment/Plan Known case of Iron defeciency anemia from likely UC, follows with stopped Ferrous sulfate will try ferrex forte PRBC being transfused may benefit from parenteral iron for OP f/u
[2017-11-17 19:12] VITALS: BMI 26.9
--- NOTE | 2017-11-17 20:59 | CON.GI ---
Consult Consult Specialty:: GI Referred by:: Dr Hilliard - History of Present Illness History of Present Illness: 27 y/o male with Ulcerative colitis associated with anemia was being worked up to receive Humara because he was not responding clinically to 5 ASA and Immuran. He did not show for his follow since July 2017. He was admitted for symptomatic anemia, dizziness, near syncope and easy fatigability. - Past Medical History Gastrointestinal: Yes: Ulcerative Colitis - Alcohol/Substance Use Hx Alcohol Use: No - Smoking History Smoking history: Never smoked Have you smoked in the past 12 months: No Aproximately how many cigarettes per day: 0 Home Medications - Allergies Allergies/Adverse Reactions: Allergies Allergy/AdvReac Type Severity Reaction Status Date / Time venom-honey bee Allergy Severe Difficulty Verified 11/17/17 11:15 [bee venom (honey bee)] Breathing - Home Medications Home Medications: Ambulatory Orders Mesalamine Suppository [Canasa Suppository -] 10,000 mg [place] PRN PRN 11/17/17 Review of Systems - Review of Systems Constitutional: denies: Fever Eyes: denies: Blurred Vision HENT: denies: Difficult Swallowing Neck: denies: Decreased ROM Cardiovascular: denies: Chest Pain Respiratory: denies: Cough Gastrointestinal: reports: Diarrhea. denies: Abdominal Pain, Bloating, Dysphagia, Indigestion, Melena Physical Exam-GI Vital Signs: Vital Signs Temperature 98.5 F 11/17/17 18:00 Pulse Rate 86 11/17/17 18:00 Respiratory Rate 16 11/17/17 18:00 Blood Pressure 127/66 11/17/17 18:00 O2 Sat by Pulse Oximetry (%) 100 11/17/17 17:15 Constitutional: Yes: Well Nourished Eyes: Yes: Conjunctiva Clear HENT: Yes: Atraumatic Neck: Yes: Supple Cardiovascular: Yes: Regular Rate and Rhythm Respiratory: Yes: CTA Bilaterally ...Palpate: No: Firm/Rigid, Guarding, Hepatomegaly, Mass, Pulsatile Mass, Splenomegaly, Tenderness Labs: CBC, BMP 11/17/17 12:40 11/17/17 12:40 INR, PTT INR 1.05 (0.82-1.09) 11/17/17 12:40 Problem List - Problems (1) Ulcerative colitis Assessment/Plan: relapse R> made aaware to follow-up closely to avoid possiblle total colectomy Prednisone 60 mg daily for 2 weeks then will give tapering dose as an outpatient Flagyl 250mg tid x 2 weeks Code(s): K51.90 - ULCERATIVE COLITIS, UNSPECIFIED, WITHOUT COMPLICATIONS
[2017-11-17] MEDS: methylPREDNISolone NA SUCC 40 MG/1 ML VIAL IVPUSH SCH (22:00)
[2017-11-17] MEDS: METRONIDAZOLE PREMIXED IVPB 250 MG/50 ML MG IVPB SCH (22:00)
[2017-11-17] MEDS: CEFTRIAXONE 1 G/50 ML PREMIX 50 ML IVPB SCH (22:01)
[2017-11-18] MEDS: METRONIDAZOLE PREMIXED IVPB 250 MG/50 ML MG IVPB SCH ×2 (02:20→10:19)
[2017-11-18 07:42] VITALS: TEMP 98.4
[2017-11-18 08:29] LABS: HEMATOCRIT 33.2 % (35.4-49); HEMOGLOBIN 9.9 GM/dL (11.7-16.9); MCH 24.1 pg (25.7-33.7); MCHC 29.9 g/dl (32.0-35.9); MEAN CELL VOLUME 80.7 fl (80-96); MEAN PLT VOLUME 7.6 fl (7.5-11.1); PLATELET COUNT 403 K/MM3 (134-434); RBC 4.11 M/mm3 (4.00-5.60); RDW 17.9 % (11.9-15.9); WHITE BLOOD COUNT 6.1 K/mm3 (4.0-10.0)
[2017-11-18 09:00] VITALS: BP 132/76; PULSE 76
--- NOTE | 2017-11-18 09:45 | DS ---
Physical Examination Vital Signs: Vital Signs Temperature 98.4 F 11/18/17 06:00 Pulse Rate 76 11/18/17 09:00 Respiratory Rate 18 11/18/17 09:00 Blood Pressure 132/76 11/18/17 09:00 O2 Sat by Pulse Oximetry (%) 99 11/18/17 05:53 Constitutional: Yes: Calm Neck: Yes: Trachea Midline Cardiovascular: Yes: Regular Rate and Rhythm, S1, S2 Respiratory: Yes: CTA Bilaterally Gastrointestinal: Yes: Normal Bowel Sounds, Soft Edema: No Neurological: Yes: Alert, Oriented Labs: CBC, BMP 11/18/17 07:30 11/17/17 12:40 Discharge Summary Reason For Visit: TRANSFUSION DEPENDENT ANEMIA Current Active Problems Anemia requiring transfusions (Acute) Ulcerative colitis (Acute) Hospital Course: The patient is a 27 year old male, with a significant past medical history of ulcerative colitis and anemia who presents to the emergency department with low H&H, SOB, headaches, light headedness for about 2 weeks. The patient also reports having complaints of palpitations. The patient reports having a previous episode with similar symptoms where he needed a blood transfusion. He notes his symptoms have been getting worse and he has been getting much more pale. He notes when transfering from a sitting position to a standing position his lightheadedness is often made worse. He denies bloody or dark/tarry stools. He denies any recent fevers, chills, illness. He denies any recent nausea, vomit , diarrhea or constipation. He denies any recent chest pain. He denies any recent dysuria, frequency, urgency or hematuria. Allergies: NKA Past surgical history: None reported. Social History: Nonsmoker. Occasional EtOH use and denies recreational drug use. Primary Care Physician: Dr.Sofia Alexander Family history: Denies cardiac history hospital course: found to have h/h of 7.7 got prbc and now h/h 9.9 and symptoms improved seen by Dr santiago for UC and started on flagyl and steroids to continue flagyl 250mg tid for 3 weeks and prednisone 60mg daily fo r2 weeks then follow with Dr santiago for tapering dose Condition: Good - Instructions Diet, Activity, Other Instructions: prednsione 60mg po daily for 2 weeks and FU with Dr santiago for tapering dose flagyl 250mg po tid for 3 weeks Referrals: Em Alexander MD [Primary Care Provider] - Wesley Santiago MD [Staff Physician] - 2 Weeks Disposition: HOME - Home Medications Comprehensive Discharge Medication List: Ambulatory Orders Mesalamine Suppository [Canasa Suppository -] 10,000 mg [place] PRN PRN 11/17/17
[2017-11-18] MEDS ORDERED: PT OWN MED DRAWER 7, Y5N ONE (10:08)
[2017-11-18] MEDS: methylPREDNISolone NA SUCC 40 MG/1 ML VIAL IVPUSH SCH (10:16)
[2017-11-18] MEDS: CEFTRIAXONE 1 G/50 ML PREMIX 50 ML IVPB SCH (11:20)
== END 2017-11-18 12:47 | disposition home or self-care (01) ==
LOC: JER 11:05 → JERBED 14:46 → J5S 17:48
PROVIDERS: ADMIT Student in an Organized Health Care Education/Training Program; ATTEND Student in an Organized Health Care Education/Training Program
PROC: 3E03329 Introduction of Other Anti-infective into Peripheral Vein, Percutaneous Approach (ICD-10-PCS; principal; 2017-11-17)
PROC: 3E033GC Introduction of Other Therapeutic Substance into Peripheral Vein, Percutaneous Approach (ICD-10-PCS; 2017-11-17)
PROC: 3E0333Z Introduction of Anti-inflammatory into Peripheral Vein, Percutaneous Approach (ICD-10-PCS; 2017-11-17)
DX: D64.9 Anemia, unspecified (principal); K29.70 Gastritis, unspecified, without bleeding; K51.90 Ulcerative colitis, unspecified, without complications
CPT/HCPCS: 36415; 36430; 71046-TC-FY; 80053; 82272; 82607; 82728; 82746; 82784; 83021; 83540; 83550; 84155; 84165; 84443; 85025; 85027; 85610; 85660; 85730; 86334; 86850; 86900; 86901; 86922; 96365; 96366; 99283-25; G0378; P9038; P9058

== ENCOUNTER 2019-06-05 07:03 | Day surgery (SDC) | payer OTHER ==
[2019-06-05 08:24] VITALS: TEMP 97.8
[2019-06-05 14:05] VITALS: BP 132/68; PULSE 66
== END 2019-06-05 14:10 | disposition home or self-care (01) ==
LOC: JBLOOD 07:03 → J7W 07:19 → JBLOOD 14:10
PROVIDERS: ATTEND Internal Medicine Gastroenterology
PROC: 30233N1 Transfusion of Nonautologous Red Blood Cells into Peripheral Vein, Percutaneous Approach (ICD-10-PCS; principal; 2019-06-05)
DX: D64.9 Anemia, unspecified (principal); K51.90 Ulcerative colitis, unspecified, without complications
CPT/HCPCS: 36430; 36511; 86850; 86900; 86901; 86922; P9038; P9058

== ENCOUNTER 2020-09-02 08:32 | Inpatient (IN) | payer OTHER ==
[2020-09-02 09:14] LABS: BASO % 0.8 % (0-2.0); EOS % 2.1 % (0-4.5); HEMATOCRIT 21.6 % (35.4-49); LYMPH % 18.8 % (8-40); MCH 21.7 pg (25.7-33.7); MCHC 29.6 g/dl (32.0-35.9); MEAN CELL VOLUME 73.4 fl (80-96); MEAN PLT VOLUME 6.5 fl (7.5-11.1); MONO % 9.7 % (3.8-10.2); NEUT % 68.6 % (42.8-82.8); PLATELET COUNT 864 K/MM3 (134-434); RBC 2.94 M/mm3 (4.00-5.60); RDW 21.8 % (11.9-15.9); WHITE BLOOD COUNT 18.3 K/mm3 (4.0-10.0)
[2020-09-02 09:16] LABS: HEMOGLOBIN 6.4 GM/dL (11.7-16.9)
[2020-09-02 09:20] LABS: INR 1.08 (0.83-1.09); PROTHROMBIN TIME (PATIENT) 13.3 SEC (9.7-13.0)
[2020-09-02] MEDS ORDERED: methylPREDNISolone NA SUCC 125 MG/2 ML VIAL IVPB ONE (09:34)
[2020-09-02] MEDS ORDERED: methylPREDNISolone NA SUCC 40 MG/1 ML VIAL ONE (09:39)
[2020-09-02] MEDS ORDERED: DEXTROSE 5%-WATER 500 ML PVC-FREE INFUS.BAG IV ONE (09:45)
[2020-09-02 09:47] LABS: POTASSIUM 4.2 mmol/L (3.5-5.1)
[2020-09-02 09:50] LABS: ALBUMIN 2.3 g/dl (3.4-5.0); BLOOD UREA NITROGEN 10.6 mg/dL (7-18); CALCIUM 8.1 mg/dL (8.5-10.1)
[2020-09-02 09:53] LABS: CREATININE 1.3 mg/dL (0.55-1.3)
[2020-09-02 09:55] LABS: BILIRUBIN,TOTAL 0.2 mg/dL (0.2-1); TOT PROT 6.6 g/dl (6.4-8.2)
[2020-09-02 10:19] LABS: ANISOCYTOSIS 2+; MACROCYTOSIS 2+; OVALOCYTE 1+; PLATELET ESTIMATE INCREASED; TARGET CELLS 2+
[2020-09-02] MEDS ORDERED: ACETAMINOPHEN 325 MG TABLET (FP) PO PRN (15:47)
[2020-09-02] MEDS ORDERED: FERRIC CARBOXYMALTOSE 750 MG in SODIUM CHLORIDE 250 ML IVPB ONE (16:00)
[2020-09-02] MEDS: IRON POLYSACCHARIDES 150 MG CAPSULE PO SCH (18:29)
[2020-09-03 08:20] LABS: BASO % 0.5 % (0-2.0); EOS % 1.3 % (0-4.5); HEMATOCRIT 26.9 % (35.4-49); HEMOGLOBIN 8.4 GM/dL (11.7-16.9); MCH 24.2 pg (25.7-33.7); MCHC 31.3 g/dl (32.0-35.9); MEAN CELL VOLUME 77.2 fl (80-96); MEAN PLT VOLUME 6.7 fl (7.5-11.1); MONO % 11.5 % (3.8-10.2); NEUT % 73.7 % (42.8-82.8); PLATELET COUNT 671 K/MM3 (134-434); RBC 3.48 M/mm3 (4.00-5.60); WHITE BLOOD COUNT 12.1 K/mm3 (4.0-10.0)
[2020-09-03 08:41] LABS: POTASSIUM 4.7 mmol/L (3.5-5.1)
[2020-09-03 08:48] LABS: BLOOD UREA NITROGEN 10.1 mg/dL (7-18); CALCIUM 7.9 mg/dL (8.5-10.1)
[2020-09-03 08:52] LABS: BILIRUBIN,TOTAL 0.7 mg/dL (0.2-1)
[2020-09-03 08:53] LABS: TOT PROT 5.9 g/dl (6.4-8.2)
[2020-09-03] MEDS: IRON POLYSACCHARIDES 150 MG CAPSULE PO SCH (09:22)
[2020-09-03] MEDS: PANTOPRAZOLE 40 MG TABLET PO SCH (09:22)
[2020-09-03] MEDS ORDERED: methylPREDNISolone NA SUCC 40 MG/1 ML VIAL IVPUSH SCH (10:00)
[2020-09-04 07:51] LABS: BASO % 0.3 % (0-2.0); EOS % 0.9 % (0-4.5); HEMATOCRIT 28.6 % (35.4-49); HEMOGLOBIN 8.9 GM/dL (11.7-16.9); LYMPH % 11.3 % (8-40); MCH 24.3 pg (25.7-33.7); MCHC 31.1 g/dl (32.0-35.9); MEAN CELL VOLUME 78.3 fl (80-96); MEAN PLT VOLUME 6.8 fl (7.5-11.1); MONO % 9.3 % (3.8-10.2); NEUT % 78.2 % (42.8-82.8); PLATELET COUNT 808 K/MM3 (134-434); RBC 3.65 M/mm3 (4.00-5.60); RDW 21.5 % (11.9-15.9); WHITE BLOOD COUNT 17.5 K/mm3 (4.0-10.0)
[2020-09-04 07:58] LABS: POTASSIUM 4.6 mmol/L (3.5-5.1)
[2020-09-04 08:22] LABS: CALCIUM 8.3 mg/dL (8.5-10.1)
[2020-09-04 08:23] LABS: ALBUMIN 2.2 g/dl (3.4-5.0); BLOOD UREA NITROGEN 14.5 mg/dL (7-18)
[2020-09-04 08:27] LABS: BILIRUBIN,TOTAL 0.3 mg/dL (0.2-1); CREATININE 1.3 mg/dL (0.55-1.3); TOT PROT 6.3 g/dl (6.4-8.2)
[2020-09-04] MEDS ORDERED: FOLIC ACID 1 MG TABLET (FP) PO SCH (10:00)
[2020-09-04] MEDS ORDERED: ASCORBIC ACID 500 MG TABLET (FP) PO SCH (10:00)
[2020-09-04] MEDS ORDERED: predniSONE 20 MG TABLET (UD) PO SCH (10:00)
[2020-09-04] MEDS: IRON POLYSACCHARIDES 150 MG CAPSULE PO SCH (10:31)
[2020-09-04] MEDS: PANTOPRAZOLE 40 MG TABLET PO SCH (10:31)
[2020-09-04 13:32] VITALS: BMI 22.8
[2020-09-04] MEDS ORDERED: metroNIDAZOLE 250 MG TABLET PO SCH (14:00)
[2020-09-04 14:52] VITALS: BP 119/57; PULSE 75; TEMP 97.9
== END 2020-09-04 15:56 | disposition home or self-care (01) | DRG 245 ==
LOC: JER 08:32 → JERBED 09:55 → J6S 09-03 02:03
PROVIDERS: ADMIT Family Medicine; ATTEND Family Medicine
PROC: 30233N1 Transfusion of Nonautologous Red Blood Cells into Peripheral Vein, Percutaneous Approach (ICD-10-PCS; principal; 2020-09-02)
DX: K51.918 Ulcerative colitis, unspecified with other complication (principal); D50.0 Iron deficiency anemia secondary to blood loss (chronic)
CPT/HCPCS: 36415; 36430; 71045-TC-FY; 80053; 82272; 82607; 83690; 84439; 84443; 85025; 85610; 85730; 86140; 86850; 86870; 86900; 86901; 86902; 86922; 87177; 87209; 93005; 93010; 99285-25; C9803; J1439; P9058; U0003

== ENCOUNTER 2020-10-10 12:53 | Inpatient (IN) | payer OTHER ==
[2020-10-10 13:08] VITALS: TEMP 98; BMI 24.2
[2020-10-10 13:42] LABS: BASO % 0.7 % (0-2.0); EOS % 1.6 % (0-4.5); HEMATOCRIT 25.4 % (35.4-49); HEMOGLOBIN 7.8 GM/dL (11.7-16.9); LYMPH % 17.9 % (8-40); MCH 28.8 pg (25.7-33.7); MCHC 30.6 g/dl (32.0-35.9); MEAN CELL VOLUME 94.3 fl (80-96); MEAN PLT VOLUME 6.5 fl (7.5-11.1); MONO % 14.6 % (3.8-10.2); NEUT % 65.2 % (42.8-82.8); PLATELET COUNT 453 K/MM3 (134-434); RDW 23.2 % (11.9-15.9); WHITE BLOOD COUNT 12.1 K/mm3 (4.0-10.0)
[2020-10-10 14:02] LABS: CHLORIDE 104 mmol/L (98-107); SODIUM 135 mmol/L (136-145)
[2020-10-10 14:04] LABS: ALBUMIN 2.5 g/dl (3.4-5.0); ANION GAP 6 MMOL/L (8-16); BLOOD UREA NITROGEN 20.8 mg/dL (7-18); CO2 25 mmol/L (21-32)
[2020-10-10 14:05] LABS: GLUCOSE,RANDOM 87 mg/dL (74-106)
[2020-10-10 14:07] LABS: SGOT/AST 13 U/L (15-37); SGPT/ALT 24 U/L (13-61)
[2020-10-10 14:08] LABS: CREATININE 1.3 mg/dL (0.55-1.3)
[2020-10-10 14:09] LABS: BILIRUBIN,TOTAL < 0.1 mg/dL (0.2-1); TOT PROT 5.8 g/dl (6.4-8.2)
[2020-10-10 14:10] LABS: ALK PHOS 47 U/L (45-117)
[2020-10-10 14:41] LABS: ANISOCYTOSIS 3+
[2020-10-10 14:42] LABS: MACROCYTOSIS 1+
[2020-10-10 14:43] LABS: PLATELET ESTIMATE SLT INCREASE; TEAR DROP CELLS 1+
[2020-10-10 15:00] VITALS: BP 124/80; PULSE 89
== END 2020-10-10 14:54 | disposition left against medical advice (07) | DRG 663 ==
LOC: JER 12:53 → JERBED 13:59 → JER 15:00
PROVIDERS: ADMIT Family Medicine; ATTEND Student in an Organized Health Care Education/Training Program
DX: D50.9 Iron deficiency anemia, unspecified (principal); K51.90 Ulcerative colitis, unspecified, without complications; R55 Syncope and collapse; I95.9 Hypotension, unspecified
CPT/HCPCS: 36415; 80053; 82962; 85025; 86922; 93005; 93010; 99285-25; C9803; U0003

== ENCOUNTER 2021-07-06 08:13 | Inpatient (IN) | payer OTHER ==
[2021-07-06 09:33] LABS: HEMATOCRIT 10.7 % (35.4-49); MCH 21.5 pg (25.7-33.7); MCHC 28.9 g/dl (32.0-35.9); MEAN CELL VOLUME 74.2 fl (80-96); MEAN PLT VOLUME 6.2 fl (7.5-11.1); PLATELET COUNT 620 10^3/uL (134-434); RBC 1.44 M/mm3 (4.00-5.60); RDW 30.5 % (11.9-15.9); WHITE BLOOD COUNT 20.8 K/mm3 (4.0-10.0)
[2021-07-06 09:42] LABS: HEMOGLOBIN 3.1 GM/dL (11.7-16.9)
[2021-07-06 09:55] LABS: BLOOD UREA NITROGEN 19.6 mg/dL (7-18); CALCIUM 7.4 mg/dL (8.5-10.1)
[2021-07-06 09:56] LABS: MAGNESIUM 2.1 mg/dL (1.8-2.4)
[2021-07-06 10:00] LABS: BILIRUBIN,TOTAL 0.3 mg/dL (0.2-1); TOT PROT 5.2 g/dl (6.4-8.2)
[2021-07-06 10:01] LABS: LDH 177 U/L (87-246)
[2021-07-06 11:22] LABS: ANISOCYTOSIS 2+; MACROCYTOSIS 1+; PLATELET ESTIMATE INCREASED
[2021-07-06] MEDS ORDERED: ACETAMINOPHEN 325 MG TABLET (FP) PO PRN (11:41)
[2021-07-06] MEDS ORDERED: SODIUM CHLORIDE 1,000 ML IV SCH (11:45)
[2021-07-06] MEDS ORDERED: PANTOPRAZOLE SODIUM 40 MG VIAL ONE (12:57)
[2021-07-06] MEDS ORDERED: predniSONE 20 MG TABLET (UD) ONE (12:57)
[2021-07-06] MEDS ORDERED: FOLIC ACID 1 MG TABLET (FP) ONE (12:57)
[2021-07-06] MEDS: predniSONE 20 MG TABLET (UD) PO SCH (13:00)
[2021-07-06] MEDS: PANTOPRAZOLE SODIUM 40 MG VIAL IVPUSH SCH (13:00)
[2021-07-06] MEDS: FOLIC ACID 1 MG TABLET (FP) PO SCH (13:00)
[2021-07-06] MEDS: IRON POLYSACCHARIDES 150 MG CAPSULE PO SCH (13:00)
[2021-07-06 21:06] VITALS: BMI 25.7
[2021-07-06 21:44] LABS: HEMATOCRIT 16.9 % (35.4-49); MCH 25.5 pg (25.7-33.7); MCHC 33.4 g/dl (32.0-35.9); MEAN CELL VOLUME 76.2 fl (80-96); MEAN PLT VOLUME 5.9 fl (7.5-11.1); PLATELET COUNT 498 10^3/uL (134-434); RBC 2.22 M/mm3 (4.00-5.60); RDW 25.4 % (11.9-15.9); WHITE BLOOD COUNT 8.2 K/mm3 (4.0-10.0)
[2021-07-06 21:51] LABS: HEMOGLOBIN 5.7 GM/dL (11.7-16.9)
[2021-07-07 09:26] LABS: BASO % 0.1 % (0-2.0); EOS % 0.6 % (0-4.5); HEMATOCRIT 18.9 % (35.4-49); LYMPH % 11.8 % (8-40); MCH 26.7 pg (25.7-33.7); MCHC 33.4 g/dl (32.0-35.9); MEAN CELL VOLUME 79.8 fl (80-96); MEAN PLT VOLUME 6.3 fl (7.5-11.1); MONO % 10.4 % (3.8-10.2); NEUT % 77.1 % (42.8-82.8); PLATELET COUNT 439 10^3/uL (134-434); RBC 2.37 M/mm3 (4.00-5.60); RDW 23.9 % (11.9-15.9); WHITE BLOOD COUNT 9.7 K/mm3 (4.0-10.0)
[2021-07-07] MEDS: PANTOPRAZOLE SODIUM 40 MG VIAL IVPUSH SCH (09:39)
[2021-07-07] MEDS: FOLIC ACID 1 MG TABLET (FP) PO SCH (09:39)
[2021-07-07] MEDS: IRON POLYSACCHARIDES 150 MG CAPSULE PO SCH (09:39)
[2021-07-07] MEDS: predniSONE 20 MG TABLET (UD) PO SCH (09:39)
[2021-07-07 09:46] LABS: HEMOGLOBIN 6.3 GM/dL (11.7-16.9)
[2021-07-07 09:57] LABS: ALBUMIN 1.9 g/dl (3.4-5.0)
[2021-07-07 09:58] LABS: BLOOD UREA NITROGEN 16.3 mg/dL (7-18); CREATININE 0.8 mg/dL (0.55-1.3); MAGNESIUM 2.1 mg/dL (1.8-2.4)
[2021-07-07 09:59] LABS: PHOSPHOROUS 3.7 mg/dL (2.5-4.9)
[2021-07-07 10:00] LABS: BILIRUBIN,TOTAL 0.3 mg/dL (0.2-1); CALCIUM 7.6 mg/dL (8.5-10.1); TOT PROT 4.8 g/dl (6.4-8.2)
[2021-07-08 04:30] VITALS: BP 127/69; PULSE 87; TEMP 98.5
== END 2021-07-08 04:22 | disposition left against medical advice (07) | DRG 245 ==
LOC: JER 08:13 → JERBED 09:15 → J6S 20:28
PROVIDERS: ADMIT Internal Medicine; ATTEND Internal Medicine
PROC: 30233N1 Transfusion of Nonautologous Red Blood Cells into Peripheral Vein, Percutaneous Approach (ICD-10-PCS; principal; 2021-07-06)
DX: K51.911 Ulcerative colitis, unspecified with rectal bleeding (principal); I95.9 Hypotension, unspecified; K92.2 Gastrointestinal hemorrhage, unspecified; D50.0 Iron deficiency anemia secondary to blood loss (chronic); D64.9 Anemia, unspecified; D72.829 Elevated white blood cell count, unspecified; R42 Dizziness and giddiness; R06.02 Shortness of breath
CPT/HCPCS: 36415; 36430; 36511; 80053; 82272; 83540; 83550; 83615; 83735; 84100; 84484; 85025; 85027; 85045; 86850; 86870; 86900; 86901; 86902; 86922; 93005; 93010; 99285-25; C9803; P9038; P9058; U0003; U0005